=== PATIENT | male | born 1945 | race Caucasian/White ===

== ENCOUNTER 2017-01-02 06:10 | Inpatient (IN) | payer OTHER ==
[2016-11-26 11:43] VITALS: BMI 31.0
--- NOTE | 2016-11-26 12:13 | PAT Medication Instructions ---
Service Date Nov 26, 2016. Current Home Medication List Glucosamine-Chondroitin (Osteo Bi-Flex Regular Str), 1 TABS PO BID Ibuprofen Tab (Advil), 400 MG PO DAILY PRN for Pain Multivitamin (Multivitamin), 1 TAB PO QAM Medication Instructions For Your Scheduled Surgery - Check with surgeon for instructions: Ibuprofen Tab (Advil), 400 MG PO DAILY PRN for Pain - Hold the following medications 2 weeks prior to surgery: Glucosamine-Chondroitin (Osteo Bi-Flex Regular Str), 1 TABS PO BID - Hold the following medications the morning of surgery: Multivitamin (Multivitamin), 1 TAB PO QAM If you have any questions please call us at [phone] or [phone] or [phone]
--- NOTE | 2016-11-26 12:58 | DIAGNOSTIC IMAGING REPORT ---
TWO VIEW CHEST CLINICAL HISTORY: Preoperative examination. FINDINGS: PA and lateral chest radiographs are compared to study dated 08/07/2006. The cardiomediastinal silhouette is unremarkable. The lungs and pleural spaces are clear. There is no pneumothorax. The skeletal structures are osteopenic. Mild degenerative change is seen in the shoulders and thoracic spine. IMPRESSION: No active disease in the chest. Electronically signed by: Ceferino Rankin M.D. 11/26/2016 12:57 PM Dictated Date/Time: 11/26/2016 12:56 PM
[2016-11-26 13:00] LABS: BASO % 0.9 %; BASO ABS # 0.06 K/uL (0-0.2); COMPLETE YES; EOS % 1.3 %; HEMATOCRIT 45.8 % (42-52); IG% 0.4 %; LYMPH % 21.9 %; LYMPH ABS # 1.51 K/uL (1.2-3.4); MEAN CELL VOLUME 93.5 fL (80-100); MEAN CORPUSCULAR HEMOGLOBIN 33.1 pg (25-34); MEAN CORPUSCULAR HGB CONC 35.4 g/dl (32-36); MONO % 10.2 %; NEUT % 65.3 %; PLATELET COUNT 239 K/uL (130-400); URINE APPEARANCE CLEAR (CLEAR); URINE BILIRUBIN NEG (NEG); URINE COLOR YELLOW; URINE NITRITE NEG (NEG); URINE SPECIFIC GRAVITY 1.022 (1.000-1.030); UROBILINOGEN NEG (NEG); WHITE BLOOD COUNT 6.88 K/uL (4.8-10.8); ZZUR CULT IF INDIC CLEAN CATCH NO
[2016-11-26 13:03] LABS: MANUAL MICROSCOPIC REQUIRED? NO; REVIEW REQ? NO
[2016-11-26 13:15] LABS: PROTHROMBIN TIME (PATIENT) 10.3 SECONDS (9.0-12.0)
[2016-11-26 13:38] LABS: ESTIMATED AVERAGE GLUCOSE 114 mg/dl; HA1C FLAG Normal (Normal)
[2016-11-26 15:33] LABS: BUN/CREATININE RATIO 17.9 (10-20); CALCIUM 9.1 mg/dl (8.5-10.1); CREATININE 0.99 mg/dl (0.60-1.40); POTASSIUM 4.3 mmol/L (3.5-5.1)
--- NOTE | 2016-12-29 08:56 | HISTORY & PHYSICAL EXAMINATION ---
DATE OF ADMISSION: 01/02/2017 CHIEF COMPLAINT: Left knee pain. HISTORY OF PRESENT ILLNESS: The patient is a 71-year-old male that presents with left knee pain. He states that the symptoms have been chronic and nontraumatic in nature. He states his symptoms have no unknown injury and they occur constantly. He describes the pain as aching, sharp and throbbing. He has tried nonsteroidal anti-inflammatories, physical therapy and cortisone injections with no relief. He would like to proceed with a total knee arthroplasty. PAST MEDICAL HISTORY: Significant for osteoarthritis. PAST SURGICAL HISTORY: Left carpal tunnel release. SOCIAL HISTORY: Denies alcohol use, denies smoking or tobacco use. He denies IV or illegal drug use. Lives in a 2-story house. He is currently retired. FAMILY HISTORY: Noncontributory. ALLERGIES: AMOXICILLIN AND PENICILLIN. HAS REACTION AT TIMES. MEDICATIONS: The patient denies taking any medications at the time of the exam. REVIEW OF SYSTEMS: He denies headaches, fevers, chills, double vision, blurry vision, sore throat, cough, chest pain, nausea, vomiting, diarrhea, constipation, numbness, tingling, tired urinary difficulties thoughts to harm himself or harm others or depression. He is positive for joint pain and joint stiffness of the left knee. OBJECTIVE: GENERAL APPEARANCE: The patient is a 71-year-old male sitting in no acute distress. He is well dressed, well nourished. He is awake, alert and oriented x3. VITAL SIGNS: He is 5 feet 5 inches tall, 189 pounds, blood pressure 112/72. HEENT: Normocephalic, atraumatic. Extraocular movements are intact. PERRLA. Mucosa was moist. No septal deviation. NECK: Supple with no lymphadenopathy, no JVD, no thyromegaly. HEART: Regular rate and rhythm with no murmurs or gallops. LUNGS: Clear to auscultation. No wheezing or rhonchi. ABDOMEN: Soft, nontender, nondistended. Normal bowel sounds, no hepatosplenomegaly. EXTREMITIES: Paying particular attention to the left knee, he is able to extend to 0 degrees, flex to 110 degrees. Ligaments are intact. He has medial joint line tenderness and anterior knee pain. NEUROLOGIC: Cranial nerves II-XII were intact. Pulses were compared bilaterally and were equal. IMPRESSION: Primary osteoarthritis of the left knee. PLAN: The patient has failed conservative therapies that includes nonsteroidal anti-inflammatories, cortisone injections, and physical therapy. He would like to proceed with a left total knee arthroplasty. Risks and benefits to surgery were discussed and included but not limited to infection, DVT, pain, stiffness, need for revision surgeries, damage to blood vessels, damage to nerves, PE, and anesthesia risks were all discussed with the patient. All questions were answered to his satisfaction. SHRUTHI
[~2017-01-02] VITALS: Ht 167.6 cm; Wt 88.3 kg
[2017-01-02] VITALS (10 sets, daily range): BP systolic 93–132; BP diastolic 56–75; PULSE 65–98; TEMP 36.4–36.8; O2SAT 91–95; Ht 167.6 cm; Wt 88.3 kg
[~2017-01-02 06:10] MED LIST: ACETAMINOPHEN 500 MG TAB PO SCH; CLINDAMYCIN 600 MG/54 ML D5W 54 ML IV SCH; CeleBREX 200 MG CAP PO SCH; DEXAMETHASONE 4 MG TAB PO SCH; FAMOTIDINE 20 MG TAB PO SCH; GABAPENTIN 300 MG CAP PO SCH; GLUCTAB18 PO; IBUP-103 PO; LACTATED RINGER'S 1000ML 1,000 ML IV SCH; LACTATED RINGER'S 1000ML 500 ML IV ONE; LACTATED RINGER'S 1000ML IV SCH; METOCLOPRAMIDE HCL 10 MG TAB PO SCH; MULT-506 PO; OXYCODONE HCL 10 MG TABCR (OXYCONTIN) PO SCH; ROPIVACAINE 5MG/ML 30 ML 150 MG, BUPIVACAINE/EPINEPHR 0.5% MPF 30 ML, KETOROLAC TROMETH... INFIL SCH
[2017-01-02] MEDS: TRANEXAMIC ACID INJ 1,000 MG in SODIUM CHLORIDE 0.9% 100ML 100 ML IV SCH ×2 (06:30→08:43)
[2017-01-02] MEDS ORDERED: BUPIVACAINE 0.5 % 5 MG/1 ML PF 10ML VIAL ONE (06:33)
[2017-01-02] MEDS ORDERED: BUPIVACAINE 0.25% 30 ML VIAL ONE (06:34)
--- NOTE | 2017-01-02 06:56 | History & Physical Bridge Note ---
H&P Re-Evaluation Bridge Note: I have examined the patient, reviewed the History & Physical and in the interval since the performance of the History & Physical I have noted the following changes of clinical significance: No changes noted
[2017-01-02] MEDS ORDERED: MIDAZOLAM HCL 1 MG/ML 2ML VIAL ONE (07:47)
[2017-01-02] MEDS ORDERED: FENTANYL CITRATE INJ 50 MCG/1 ML 2 ML VIAL ONE (07:48)
[2017-01-02] MEDS ORDERED: EpHEDrine SULFATE INJ 50 MG/ML AMP ONE (09:13)
[2017-01-02] MEDS ORDERED: ORTHO JOINT ANESTHETIC ONE (09:28)
[2017-01-02] MEDS ORDERED: POVIDONE-IODINE OP SOLN 30 ML BTL ONE (09:29)
[2017-01-02] MEDS ORDERED: BACITRACIN 50000 UNIT VIAL ONE (09:29)
[2017-01-02] MEDS ORDERED: ATROPINE SULFATE 0.1 MG/ML 5ML SYR IV PRN (09:30)
[2017-01-02] MEDS ORDERED: EpHEDrine SULFATE INJ 50 MG/ML AMP IV PRN (09:30)
[2017-01-02] MEDS ORDERED: PROPOFOL IV EMULSION 10 MG/ML 20 ML VIAL IV ONE ×2 (09:56→11:18)
--- NOTE | 2017-01-02 11:41 | [facility] Operative Report ---
Operative Report Operative Date Jan 02, 2017. Pre-Operative Diagnosis Left knee primary osteoarthritis Post-Operative Diagnosis same Procedure(s) Performed Left Total Knee Arthroplasty Surgeon Dr. Andrea Negron Wood Carving Lathe Operator Surgeon(s) Danny Ramirez PA-C Estimated Blood Loss 20 ml Findings above Specimens a. Left Knee Bone and Tissue Drains 2 hemovac Anesthesia spinal Complication(s) None Disposition Recovery Room / PACU Indications 71-year-old male with long-standing degenerative joint disease left knee. He is [id number] medial compartment. He has failed conservative measures including injection anti-inflammatories. He wishes to proceed with a left total knee arthroplasty. Description of Procedure Risks benefits and alternatives of surgery including but not limited to infection, DVT, pain, stiffness, need for surgery, damage to blood vessels, damage to nerves or risks of anesthesia were discussed with the patient and they wished to proceed. The patient was identified and the laterality was confirmed and marked. They received a preoperative antibiotic as well as a spinal anesthetic and an abductor canal block. A well-padded tourniquet was applied and then the limb was prepped and draped in standard manner with ChloraPrep. The limb was exsanguinated and the tourniquet was inflated. I made a standard anterior incision. I sharply incised the skin then utilized Bovie electrocautery as well as the aqua mantis to achieve hemostasis. I made a medial parapatellar arthrotomy immobilized the patella laterally. I then excised the anterior horns of the medial and lateral meniscus as well as the infrapatellar fat pad. I elevated a portion of the MCL off of the tibia. I then pinned into place a patient-matched distal femoral cutting guide and made my distal femoral resection. I then pinned into place the 5 in 1 femoral cutting guide. I made my anterior, posterior and chamfer cuts. I then excised the cruciates and the remaining portions of the menisci. I then pinned into place a patient- matched tibial cutting guide and made my tibial resection. I then pinned into place the tibial plate a utilizing alignment sony to confirm rotation. I then cut for the post. Utilizing a lamina private secretary and I then removed posterior osteophytes off the femur. I then placed a trial femur into position and cut for the trochlear component. I then sequentially trialed to size the polyethylene until there was good soft tissue balancing and range of motion. I then prepared the patella with a freehand cut utilizing sagittal saw. I sized and drilled for the patella. There was some slight lateral tracking to the patella. Once a lateral release was performed we had good tracking to the patella. All the trial components were removed. The deep tissues were anesthetized with an ortho mix solution. Then with Simplex HV with gentamicin cement, I cemented my definitive components. Definitive components, [employer] 2: Femur 5 Tibia 4 Poly 9 Patella 26 oval A betadine soak was performed. A deep drain was placed. The arthrotomy was closed with interrupted #1 Vicryl suture subcutaneous tissue was closed with interrupted 2-0 Vicryl suture. The skin was closed with with hesham. A Silverlon was placed. Sterile dressings were applied. All needle and sponge counts were correct at the end of the procedure patient was transferred to the PACU in stable condition without apparent complication. The PA-C was necessary for assistance with procedure for assistance in positioning, prepping, draping, retraction and closure. I attest to the content of the Intraoperative Record and any orders documented therein. Any exceptions are noted below.
[2017-01-02] MEDS ORDERED: ZOLPIDEM TARTRATE 5 MG TAB PO PRN (11:45)
[2017-01-02] MEDS ORDERED: ONDANSETRON INJ 2 MG/ML 2 ML VIAL IV PRN (11:45)
[2017-01-02] MEDS ORDERED: METOCLOPRAMIDE HCL INJ 5 MG/ML 2 ML VIAL IV PRN (11:45)
[2017-01-02] MEDS ORDERED: KETOROLAC TROMETHAMINE 15 MG/ML VIAL IV. PRN (11:45)
[2017-01-02] MEDS ORDERED: BISACODYL 10 MG SUPP PR PRN (11:45)
[2017-01-02] MEDS ORDERED: MAGNESIUM HYDROXIDE SUSP 30 ML UDC PO PRN (11:45)
[2017-01-02] MEDS ORDERED: ALUMINUM/MAGNESIUM/SIMETH (MAALOX MAX) 30 ML UDC PO PRN (11:45)
[2017-01-02] MEDS ORDERED: DiphenhydrAMINE HCL 50 MG/ML VIAL IV PRN (11:45)
[2017-01-02] MEDS ORDERED: MoRPHine SULFATE 2 MG/ML CARP IV PRN (11:45)
--- NOTE | 2017-01-02 12:33 | DIAGNOSTIC IMAGING REPORT ---
L KNEE 1 OR 2 VIEWS ROUTINE CLINICAL HISTORY: Knee arthroplasty COMPARISON: None. DISCUSSION: There are postsurgical changes of a total left knee arthroplasty and patellar resurfacing. The femoral tibial components appear well seated. There are overlying skin hesham and surgical drains. There is air in the soft tissues consistent with recent surgery. IMPRESSION: Postsurgical changes of a total left knee arthroplasty Electronically signed by: Vikas Burns M.D. 01/02/2017 12:32 PM Dictated Date/Time: 01/02/2017 12:31 PM
--- NOTE | 2017-01-02 12:41 | Anesthesiology Progress Note ---
Anesthesia Post Op Note Date & Time Jan 02, 2017 at 12:40 Vital Signs Pain Intensity: 0 Vital Signs Past 12 Hours Date Time Temp Pulse Resp B/P (MAP) Pulse Ox O2 Delivery O2 Flow Rate FiO2 01/02/17 11:51 36.6 95 16 104/49 95 Oxymask 10 01/02/17 06:36 95 Room Air 01/02/17 06:34 36.7 66 18 132/75 Notes Mental Status: alert / awake / arousable, participated in evaluation Pt Amnestic to Procedure: Yes Nausea / Vomiting: adequately controlled Pain: adequately controlled Airway Patency, RR, SpO2: stable & adequate BP & HR: stable & adequate Hydration State: stable & adequate Neuraxial Anesthesia: was administered, sensory block is resolving Anesthetic Complications: no major complications apparent
[2017-01-02] MEDS: D5W AND 1/2NSS + 20MEQ KCL 1,000 ML IV SCH ×2 (13:50→21:28)
[2017-01-02] MEDS: ACETAMINOPHEN 500 MG TAB PO SCH ×2 (15:32→23:07)
--- NOTE | 2017-01-02 16:11 | Discharge Instructions ---
Discharge Instructions Date of Service Jan 02, 2017. Admission Reason for Admission: Left Knee Osteoarthritis Discharge Discharge Diagnosis / Problem: S/P Left TKA Discharge Goals Goal(s): Decrease discomfort, Improve function Activity Recommendations Activity Limitations: per Instructions/Follow-up section . Instructions / Follow-Up Instructions / Follow-Up ACTIVITY RECOMMENDATIONS: SELF CARE INSTRUCTIONS AFTER TOTAL KNEE REPLACEMENT A. You may need to continue a physical therapy program after discharge from the hospital. There are several options available to you. Your doctor will assist you in selecting the best one for you. 1. An out-patient facility 2 to 3 times a week for therapy or home therapy. 2. Continue working on all exercises taught to you in the hospital. Your goals should be to increase bending of your knee to 90 degrees and beyond and to fully straighten your knee. B. You may progress at your own pace from walking with a walker or crutches to a cane; then to no assistive devices. C. Make walking a part of your daily routine. Be up as much as comfortable with rest periods throughout the day. Rest with leg elevation is very important. Use the ice wrap frequently for the first 3-4 weeks. D. There are no restrictions on activities. You may ride in a car, shop, participate in dancing teacher and all social activities. E. Wear the long elastic stockings (WILLIAMS hose) 20 hours a day for 2 weeks after surgery. They can be removed several times a day for laundering and for a bath. F. You may shower, no tub baths until cleared by your doctor. SPECIAL CARE INSTRUCTIONS: VERY IMPORTANT TO READ AND REVIEW A. There are a few signs you need to watch for after you are home. Call [facility] if you notice any of the followin. Increased severe knee pain. Some pain is expected especially when you exercise. 2. Increased swelling in your leg or knee; pain or swelling of the calf muscle in either lower leg. 3. Any fluid drainage from the incision. 4. Shortness of breath or chest pain. B. Please call [facility] at if you have any concerns or questions about your operation or recovery. The doctor or his nurse will return your call promptly. C. You must take antibiotics before dental work, bladder, bowel or other surgery. Your doctor will provide you with a permanent care to carry describing this precaution. IMPORTANT: * REMEMBER TO TAKE ASPIRIN, 81 MG, TWICE DAILY FOR 4 WEEKS UNLESS OTHERWISE DIRECTED. THIS IS YOUR BLOOD THINNER. * CALL IF INCREASED PAIN, REDNESS, DRAINAGE OR FEVER GREATER THAT 101. * WEAR WILLIAMS HOSE 20 HOURS PER DAY FOR 2 WEEKS. * YOU MAY HAVE A LARGE BAND-AID LIKE DRESSING (SILVERON). THIS WILL REMAIN ON YOUR INCISION FOR 7 DAYS, THEN CAN BE REMOVED. IF INCISION IS LEAKING THROUGH DRESSING, CALL THE OFFICE . FOLLOW UP VISIT: If appointment is not already scheduled: Please call [facility] to make a follow-up appointment for 2 weeks after your surgery at . Current Hospital Diet Patient's current hospital diet: Regular Diet Discharge Diet Recommended Diet: Regular Diet Procedures Procedures Performed: Left Total Knee Arthroplasty Pending Studies Studies pending at discharge: no Laboratory Results Hemoglobin A1c Test 11/26/16 12:21 Range/Units Estimated Average Glucose 114 mg/dl Hemoglobin A1c 5.6 4.5-5.6 % Medical Emergencies . Who to Call and When: Medical Emergencies: If at any time you feel your situation is an emergency, please call 911 immediately. . Non-Emergent Contact Non-Emergency issues call your: Surgeon Call Non-Emergent contact if: temperature is above 101.5, your pain is worsening, wound has increased drainage, wound has increased redness . "Provider Documentation" section prepared by Danny Ramirez. . VTE Core Measure Inpt VTE Proph given/why not?: Other Anticoagulation (ASA) [place] Drug Monitoring Program Search Results: patient reviewed within database, no issues identified
[2017-01-02] MEDS: FERROUS GLUCONATE 324 MG TAB PO SCH (17:44)
[2017-01-02] MEDS: CLINDAMYCIN IV 600 MG in DEXTROSE 5% 50ML 50 ML IV SCH (17:46)
[2017-01-02] MEDS: OXYCODONE HCL IR 5 MG TAB (IMMEDIATE RELEASE) PO PRN (20:10)
[2017-01-02] MEDS: ASPIRIN 81 MG ECTAB PO SCH (21:28)
[2017-01-03] MEDS: CLINDAMYCIN IV 600 MG in DEXTROSE 5% 50ML 50 ML IV SCH (02:32)
[2017-01-03 04:15] VITALS: BP 91/51; PULSE 58; TEMP 36.3; O2SAT 95
[2017-01-03 06:22] LABS: HEMATOCRIT 37.7 % (42-52); MEAN CELL VOLUME 93.3 fL (80-100); MEAN CORPUSCULAR HEMOGLOBIN 31.9 pg (25-34); MEAN CORPUSCULAR HGB CONC 34.2 g/dl (32-36); MEAN PLATELET VOLUME 9.9 fL (7.4-10.4); PLATELET COUNT 202 K/uL (130-400); RED BLOOD COUNT 4.04 M/uL (4.7-6.1); WHITE BLOOD COUNT 16.99 K/uL (4.8-10.8)
[2017-01-03] MEDS: ACETAMINOPHEN 500 MG TAB PO SCH ×3 (06:33→22:06)
[2017-01-03 06:49] LABS: BUN/CREATININE RATIO 18.1 (10-20); CALCIUM 8.6 mg/dl (8.5-10.1); CREATININE 0.99 mg/dl (0.60-1.40); POTASSIUM 4.6 mmol/L (3.5-5.1)
[2017-01-03 07:17] VITALS: BP 112/65; PULSE 62; TEMP 36.5; O2SAT 96
[2017-01-03] MEDS ORDERED: DEXAMETHASONE 4 MG TAB PO SCH (07:30)
[2017-01-03] MEDS: D5W AND 1/2NSS + 20MEQ KCL 1,000 ML IV SCH (07:33)
--- NOTE | 2017-01-03 08:15 | Orthopedic Progress Note ---
Orthopedic Progress Note Date of Service Jan 03, 2017. Subjective Post OP Day: 1 Reports: feeling well Objective N/V intact, dressing C/D/I (Hemovac in place), toes mobile Date Time Temp Pulse Resp B/P (MAP) Pulse Ox O2 Delivery O2 Flow Rate FiO2 01/03/17 07:17 36.5 62 17 112/65 (81) 96 Room Air 01/03/17 04:15 36.3 58 16 91/51 (64) 95 Room Air 01/02/17 23:25 Room Air 01/02/17 23:08 96/61 (73) 01/02/17 23:02 36.5 65 16 93/56 (68) 92 Room Air 01/02/17 20:15 36.4 79 17 123/66 (85) 94 Room Air 01/02/17 16:13 36.7 90 18 108/63 (78) 94 Room Air 01/02/17 15:15 Nasal Cannula 2.0 01/02/17 15:00 36.4 98 17 113/69 (84) 93 Nasal Cannula 2.0 01/02/17 14:00 92 18 112/69 (83) 91 Nasal Cannula 2.0 01/02/17 13:26 92 20 114/71 (85) 94 Nasal Cannula 2.0 01/02/17 13:00 Nasal Cannula 2.0 01/02/17 13:00 Nasal Cannula 2.0 01/02/17 13:00 36.8 87 16 118/71 (87) 92 Nasal Cannula 2.0 01/02/17 12:51 103/60 01/02/17 12:47 83 18 93 01/02/17 12:47 85 18 01/02/17 12:46 97/52 01/02/17 12:42 85 16 93 01/02/17 12:42 85 16 01/02/17 12:41 94/62 01/02/17 12:37 86 18 01/02/17 12:37 85 18 93 01/02/17 12:36 101/59 01/02/17 12:32 89 19 93 01/02/17 12:32 88 19 01/02/17 12:31 94/57 01/02/17 12:27 84 17 93 01/02/17 12:27 84 17 01/02/17 12:26 93/57 01/02/17 12:22 85 19 94 01/02/17 12:22 85 19 01/02/17 12:21 36.8 84 16 01/02/17 12:21 84 16 101/63 94 01/02/17 12:16 90 14 01/02/17 12:16 89 14 94 01/02/17 12:11 91 23 88/57 94 01/02/17 12:11 92 23 01/02/17 12:06 84 16 01/02/17 12:06 84 16 101/61 95 01/02/17 12:01 93 19 01/02/17 12:01 93 19 105/62 95 01/02/17 11:56 87 21 01/02/17 11:56 86 21 87/54 94 01/02/17 11:55 104/49 01/02/17 11:51 36.6 95 16 104/49 95 Oxymask 10 Laboratory Results 24 Hours: Test 01/03/17 05:42 Hematocrit 37.7 % Hemoglobin 12.9 g/dL Assessment & Plan Assessment: 71 yo male stable POD #1 s/p left TKA Plan: 1. Med management 2. DVT prophylaxis- ASA, TEDs, SCDs 3. PT/OT 4. D/C planning- home w/ HH
[2017-01-03] MEDS: ASPIRIN 81 MG ECTAB PO SCH ×2 (08:20→22:05)
[2017-01-03] MEDS: PANTOprazole SOD 40 MG TAB PO SCH (08:21)
[2017-01-03] MEDS: MULTIVITAMIN TAB PO SCH (08:21)
[2017-01-03] MEDS: FERROUS GLUCONATE 324 MG TAB PO SCH ×3 (08:21→18:02)
[2017-01-03] MEDS: OXYCODONE HCL IR 5 MG TAB (IMMEDIATE RELEASE) PO PRN ×2 (08:26→19:30)
[2017-01-03] MEDS ORDERED: MULTIVITAMIN TAB PO SCH (09:00)
[2017-01-03 11:07] VITALS: BP 119/69; PULSE 68; TEMP 36.7; O2SAT 94
[2017-01-03 15:04] VITALS: BP 101/62; PULSE 76; TEMP 36.6; O2SAT 93
[2017-01-03] MEDS ORDERED: CeleBREX 200 MG CAP PO SCH (21:00)
[2017-01-03 23:59] VITALS: BP 108/65; PULSE 50; TEMP 36.5; O2SAT 94
[2017-01-04 06:04] VITALS: BP 124/84; PULSE 58; TEMP 36.5; O2SAT 97
[2017-01-04] MEDS: ACETAMINOPHEN 500 MG TAB PO SCH (06:36)
[2017-01-04] MEDS: PANTOprazole SOD 40 MG TAB PO SCH (08:02)
[2017-01-04] MEDS: ASPIRIN 81 MG ECTAB PO SCH (08:02)
[2017-01-04] MEDS: OXYCODONE HCL IR 5 MG TAB (IMMEDIATE RELEASE) PO PRN (08:02)
[2017-01-04] MEDS: MULTIVITAMIN TAB PO SCH (08:02)
[2017-01-04] MEDS: FERROUS GLUCONATE 324 MG TAB PO SCH (08:03)
--- NOTE | 2017-01-04 08:21 | Orthopedic Progress Note ---
Orthopedic Progress Note Date of Service Jan 04, 2017. Subjective Post OP Day: 2 Reports: feeling well Objective N/V intact, dressing C/D/I, toes mobile Date Time Temp Pulse Resp B/P (MAP) Pulse Ox O2 Delivery O2 Flow Rate FiO2 01/04/17 06:04 36.5 58 16 124/84 (97) 97 Room Air 01/03/17 23:59 36.5 50 16 108/65 (79) 94 Room Air 01/03/17 23:40 Room Air 01/03/17 15:30 Room Air 01/03/17 15:04 36.6 76 17 101/62 (75) 93 Room Air 01/03/17 11:07 36.7 68 17 119/69 (86) 94 Room Air Assessment & Plan Assessment: 71 yo male stable POD #2 s/p left TKA Plan: 1. Med management 2. DVT prophylaxis- ASA, TEDs, SCDs 3. PT/OT 4. D/C planning- home w/ HH
[2017-01-04] MEDS ORDERED: ASPEC81 PO (08:23)
[2017-01-04] MEDS ORDERED: ONDA8TAB12 PO (08:23)
[2017-01-04] MEDS ORDERED: ACET-24 PO (08:23)
[2017-01-04] MEDS ORDERED: RXC5 PO (08:23)
[2017-01-04] MEDS ORDERED: CLB200 PO (08:23)
[2017-01-04 10:02] VITALS: BP 124/84; PULSE 58; TEMP 36.5; O2SAT 97
--- NOTE | 2017-01-08 10:30 | Discharge Summary ---
Orthopedic Discharge Summary Admission Date/Reason Jan 02, 2017 at 06:20 Left Knee Osteoarthritis. Discharge Date/Disposition Jan 04, 2017 Home with services Diagnosis Principal Diagnosis: S/P left TKA Medication Reconciliation as per discharge instructions Admission Physical Exam As per Admitting History & Physical. Hospital Course POD #1 patient was feeling well. Dressing was C/D/I, he had some extra drainage in his Hemovac. He did well with PT. He was scheduled to be discharged the next day with home health. POD#2 patient is feeling well. Dressing was clean, dry and intact. He was discharged that day home with home health. Discharge Instructions Please refer to the electronic Patient Visit Report (Discharge Instructions) for additional information.
== END 2017-01-04 11:04 | disposition home health service (06) | DRG 470 ==
LOC: C.ACU 06:10 → C.3E 06:20 → ENRESERV 12:21
PROVIDERS: ADMIT Orthopaedic Surgery; ATTEND Orthopaedic Surgery
PROC: 0SRD0J9 Replacement of Left Knee Joint with Synthetic Substitute, Cemented, Open Approach (ICD-10-PCS; principal; 2017-01-02 09:20)
DX: M17.12 Unilateral primary osteoarthritis, left knee (principal)